=== PATIENT | female | born 1995 | race Caucasian/White ===

== ENCOUNTER 2017-07-19 15:36 | Emergency (ER) | payer OTHER ==
[~2017-07-19] VITALS: Ht 162.6 cm; Wt 56.2 kg
[~2017-07-19 15:36] MED LIST: FLEXERIL10 MG PO; FLUOXETINE HCL20 MG PO; FLUTICASONE PRO16 GM BOTH NARES; MEDROXYPRO150 MG/1 M IM; NAPROSYN500 MG PO; VENTOLIN HFA18 GM IH
[2017-07-19] MEDS ORDERED: AUGMENTIN875 MG PO (16:54)
[2017-07-19] MEDS ORDERED: MOTRIN600 MG PO (16:54)
[2017-07-19 17:23] VITALS: BP 137/78
== END 2017-07-19 17:24 | disposition home or self-care (01) ==
LOC: EME 15:36
DX: S51.852A Open bite of left forearm, initial encounter (principal); W54.0XXA Bitten by dog, initial encounter; Y93.01 Activity, walking, marching and hiking; Y99.0 Civilian activity done for income or pay
CPT/HCPCS: 73110; 99281; 99284